=== PATIENT | female | born 1955 | race Caucasian/White ===

== ENCOUNTER 2021-04-17 18:16 | Inpatient (IN) ==
[2021-04-17 18:52] LABS: Bilirubin,Urine Negative (Negative); Blood, Urine Negative (Negative); Glucose,Urine (UA) Negative (Negative); Ketones,Urine Negative (Negative); Mucus,Urine Occasional /LPF (Occasional); Nitrite,Urine Negative (Negative); Protein,Urine Negative; RBC,Urine 3 /HPF (0-4); Squamous Epithelial Cell,Urine Occasional /HPF (0-10); Urine Appearance CLEAR (Clear); Urine Color Yellow (Yellow); Urine Specific Gravity 1.016 (1.001-1.035); Urine Urobilinogen < 2.0 EU/DL (0.2-1.0)
[2021-04-17] MEDS ORDERED: SODIUM CHLORIDE 0.9% 1,000 ML IV STA (19:20)
[2021-04-17 19:56] LABS: Basophils # 0.1 10*3/uL (0.0-0.2); Basophils % 0.9 % (0.0-0.8); Eosinophils # 0.2 10*3/uL (0.0-0.87); Eosinophils % 1.8 % (0.00-10.9); Hematocrit 43.6 VOL% (35.7-47.0); Hemoglobin 14.7 GM/DL (12.0-16.0); Immature Granulocytes % 0.4 %; Immature Granulocytes Absolute 0.04 #; Lymphocytes # 2.2 10*3/uL (1.4-4.0); Lymphocytes % 22.1 % (21.3-54.2); Mean Corpuscular HGB Conc 33.7 GM/DL (32-36); Mean Corpuscular Volume 93.4 FL (87-102); Mean Platelet Volume 10.9 FL (9.6-12.0); Monocytes % 8.8 % (1.7-12.7); Platelet Count 182 T/CUMM (130-400); Red Blood Count 4.67 MC/CUMM (3.8-5.5); Red Cell Distribution Width 13.1 % (9.3-17.3); White Blood Count 10.1 T/CUMM (4-12)
[2021-04-17 20:23] LABS: Alanine Aminotransferase 46 U/L (13-56); Albumin 3.4 G/DL (3.4-5.0); Alkaline Phosphatase 97 U/L (45-117); Aspartate Amino Transferase 27 U/L (0-37); Blood Urea Nitrogen 15 MG/DL (7-18); Calcium 8.6 MG/DL (8.5-10.1); Carbon Dioxide 26 MMOL/L (21-32); Estimated Glom Filtration Rate 66 ML/MIN; Glucose 88 MG/DL (74-106); Osmolality,Calculated 287.7 MOS/KG (273-304); Potassium 4.1 MMOL/L (3.5-5.1); Sodium 145 MMOL/L (136-145); Total Protein 6.7 G/DL (6.4-8.2)
[2021-04-17 20:27] LABS: Salicylate 6.1 MG/DL (2.8-20)
[2021-04-17 20:29] LABS: Acetaminophen < 2.0 UG/ML (10-30)
[2021-04-17 20:34] LABS: Barbiturates Screen,Urine Negative (Negative); Benzodiazepines Screen,Urine Negative (Negative); Cannabinoid Screen,Urine Negative (Negative); Opiate Screen,Urine Negative (Negative); Phencyclidine Screen,Urine Negative (Negative)
[2021-04-17 20:45] LABS: Eosinophils 1 % (0-10); Lymphocytes 27 % (20-55); Segmented Neutrophils 67 % (50-85); Total Cells Counted 100
[2021-04-17 20:46] LABS: Platelet Estimate Adequate; Smudge Cells Few
[2021-04-17] MEDS ORDERED: hydrALAZINE 20 MG/1 ML VIAL IV PRN (22:21)
[2021-04-17] MEDS ORDERED: LACTULOSE 20 GM/30 ML UDCUP PO ONE (22:22)
[2021-04-17] MEDS: SODIUM CHLORIDE 0.9% 1,000 ML IV SCH (22:45)
[2021-04-17] MEDS: ENOXAPARIN 40 MG/0.4 ML SYRINGE SUBCUT SCH (22:46)
[2021-04-18 02:01] LABS: Calcium 8.5 MG/DL (8.5-10.1); Osmolality,Calculated 284.8 MOS/KG (273-304); Potassium 3.6 MMOL/L (3.5-5.1)
[2021-04-18] MEDS: SODIUM CHLORIDE 0.9% 1,000 ML IV SCH ×2 (10:03→20:10)
[2021-04-18] MEDS: ENOXAPARIN 40 MG/0.4 ML SYRINGE SUBCUT SCH (22:42)
[2021-04-19 05:02] LABS: Basophils # 0.1 10*3/uL (0.0-0.2); Basophils % 0.9 % (0.0-0.8); Eosinophils # 0.2 10*3/uL (0.0-0.87); Eosinophils % 2.8 % (0.00-10.9); Hematocrit 39.3 VOL% (35.7-47.0); Hemoglobin 13.2 GM/DL (12.0-16.0); Immature Granulocytes % 0.1 %; Immature Granulocytes Absolute 0.01 #; Lymphocytes # 1.9 10*3/uL (1.4-4.0); Lymphocytes % 25.3 % (21.3-54.2); Mean Corpuscular HGB Conc 33.6 GM/DL (32-36); Mean Corpuscular Volume 93.1 FL (87-102); Mean Platelet Volume 11.4 FL (9.6-12.0); Monocytes % 9.4 % (1.7-12.7); Neutrophils % 61.5 % (38.7-73.9); Platelet Count 129 T/CUMM (130-400); Red Blood Count 4.22 MC/CUMM (3.8-5.5); White Blood Count 7.6 T/CUMM (4-12)
[2021-04-19 05:05] LABS: Calcium 8.1 MG/DL (8.5-10.1); Osmolality,Calculated 284.8 MOS/KG (273-304)
[2021-04-19 05:06] LABS: Risk Ratio 3.83
[2021-04-19] MEDS: SODIUM CHLORIDE 0.9% 1,000 ML IV SCH (06:39)
[2021-04-19] MEDS: POTASSIUM CHLORIDE 20 MEQ TABLET PO SCH (09:36)
[2021-04-19] MEDS: hydroCHLOROthiazide 25 MG TABLET PO SCH (09:36)
[2021-04-19] MEDS: ASPIRIN EC 81 MG TABLET PO SCH (17:34)
[2021-04-19] MEDS ORDERED: METOPROLOL TARTRATE 5 MG/5 ML VIAL IV ONE (17:51)
[2021-04-19] MEDS: ENOXAPARIN 40 MG/0.4 ML SYRINGE SUBCUT SCH (21:52)
[2021-04-19] MEDS: PANTOPRAZOLE 40 MG TABLET PO SCH (21:54)
[2021-04-19] MEDS: diphenhydrAMINE CAP 50 MG CAPSULE PO SCH (21:54)
[2021-04-19] MEDS: METOPROLOL SUCCINATE XL 50 MG TABLET PO SCH (21:54)
[2021-04-19] MEDS: OXcarbazepine 300 MG TABLET PO SCH (21:54)
[2021-04-20 05:46] LABS: Calcium 8.3 MG/DL (8.5-10.1); Potassium 2.9 MMOL/L (3.5-5.1)
[2021-04-20] MEDS ORDERED: POTASSIUM CHLORIDE 20 MEQ TABLET PO ONE (07:47)
[2021-04-20] MEDS: POTASSIUM CHLORIDE 20 MEQ TABLET PO SCH (08:58)
[2021-04-20] MEDS: VENLAFAXINE 75 MG TABLET PO SCH (08:58)
[2021-04-20] MEDS: ASPIRIN EC 81 MG TABLET PO SCH (08:59)
[2021-04-20] MEDS: MULTIVITAMIN (OCUVITE) TABLET PO SCH (08:59)
[2021-04-20] MEDS: hydroCHLOROthiazide 25 MG TABLET PO SCH (08:59)
[2021-04-20] MEDS: OXcarbazepine 300 MG TABLET PO SCH ×2 (08:59→20:30)
[2021-04-20] MEDS ORDERED: hydroCHLOROthiazide 12.5 MG CAPSULE PO ONE (09:48)
[2021-04-20] MEDS: NICOTINE 21 MG/24 HR PATCH TRANSDERM SCH (13:45)
[2021-04-20] MEDS: METOPROLOL SUCCINATE XL 50 MG TABLET PO SCH (20:29)
[2021-04-20] MEDS: PANTOPRAZOLE 40 MG TABLET PO SCH (20:30)
[2021-04-20] MEDS: diphenhydrAMINE CAP 50 MG CAPSULE PO SCH (20:30)
[2021-04-20] MEDS: ENOXAPARIN 40 MG/0.4 ML SYRINGE SUBCUT SCH (21:32)
[2021-04-21 06:32] LABS: Calcium 8.6 MG/DL (8.5-10.1); Osmolality,Calculated 279.4 MOS/KG (273-304); Potassium 3.4 MMOL/L (3.5-5.1)
[2021-04-21 07:15] VITALS: BP 148/81
[2021-04-21] MEDS: ASPIRIN EC 81 MG TABLET PO SCH (08:52)
[2021-04-21] MEDS: OXcarbazepine 300 MG TABLET PO SCH (08:52)
[2021-04-21] MEDS: POTASSIUM CHLORIDE 20 MEQ TABLET PO SCH (08:52)
[2021-04-21] MEDS: VENLAFAXINE 75 MG TABLET PO SCH (08:52)
[2021-04-21] MEDS: NICOTINE 21 MG/24 HR PATCH TRANSDERM SCH (08:53)
[2021-04-21] MEDS: MULTIVITAMIN (OCUVITE) TABLET PO SCH (08:53)
[2021-04-21] MEDS ORDERED: hydroCHLOROthiazide 25 MG TABLET PO SCH (09:00)
[2021-04-21] MEDS ORDERED: amLODIPine 5 MG TABLET PO SCH (09:00)
== END 2021-04-21 11:14 | DRG 918 ==
LOC: EDBD → EDUNIT# → N.ED 18:16 → SUATTDRO 21:54 → N.EDINP 21:54 → N.TELEN 23:28
PROVIDERS: ADMIT Internal Medicine; ATTEND Internal Medicine Geriatric Medicine